=== PATIENT | male | born 1980 | race African-American/Black ===

== ENCOUNTER 2016-12-10 00:22 | Emergency (ER) | payer OTHER ==
[~2016-12-10] VITALS: Ht 177.8 cm; Wt 75.0 kg
[2016-12-10 00:49] VITALS: BP 118/87
== END 2016-12-10 03:26 ==
LOC: EDBD 00:22 → EME 00:22
PROC: 0HQ1XZZ Repair Face Skin, External Approach (ICD-10-PCS; principal; 2016-12-10)
DX: S01.81XA Laceration without foreign body of other part of head, initial encounter (principal); S09.8XXA Other specified injuries of head, initial encounter; W18.2XXA Fall in (into) shower or empty bathtub, initial encounter; Y93.E1 Activity, personal bathing and showering; Y92.142 Bathroom in prison as the place of occurrence of the external cause; Z87.891 Personal history of nicotine dependence
CPT/HCPCS: 70450; 99281; 99282